=== PATIENT | female | born 1945 | race Two or more races ===

== ENCOUNTER 2021-07-15 14:00 | Outpatient (CLI) | payer MEDICARE, OTHER ==
[2021-07-23] MEDS ORDERED: RIVA10TA PO (16:08)
[2021-07-23] MEDS ORDERED: SENN-175 PO (16:08)
== END 2021-07-15 23:59 | disposition home or self-care (01) ==
LOC: LAB 14:00
PROVIDERS: ATTEND Specialist
DX: Z01.812 Encounter for preprocedural laboratory examination (principal); Z20.822 Contact with and (suspected) exposure to COVID-19
CPT/HCPCS: C9803; U0003

== ENCOUNTER 2021-07-22 05:10 | Inpatient (IN) | payer MEDICARE, OTHER ==
[~2021-07-22] VITALS: Ht 152.4 cm; Wt 66.8 kg
[2021-07-22 05:40] VITALS: BP 123/82
[2021-07-22] MEDS ORDERED: BUPIVACAINE 0.5 % PF 150 MG/30 ML VIAL ONE (06:24)
[2021-07-22] MEDS ORDERED: POLYMYXIN B SULFATE 500,000 UNITS ONE (06:24)
[2021-07-22] MEDS ORDERED: OXYC1TAB12 PO (06:26)
[2021-07-22] MEDS ORDERED: HYDROMORPHONE INJ 2 MG/ML DISP.SYRIN ONE (06:36)
[2021-07-22] MEDS ORDERED: FENTANYL PF 250MCG/5ML AMPUL ONE (06:36)
[2021-07-22] MEDS ORDERED: FAMOTIDINE/PF INJ 20 MG/2 ML VIAL IV ONE (06:37)
[2021-07-22] MEDS ORDERED: ROCURONIUM BROMIDE 50 MG/5 ML ONE (06:37)
[2021-07-22] MEDS ORDERED: MIDAZOLAM HCL 2 MG/2ML VIAL ONE (06:37)
[2021-07-22] MEDS ORDERED: TRANEXAMIC ACID 3,000 MG in SODIUM CHLORIDE IRRIG SOLUTION 70 ML IR ONE (07:00)
--- NOTE | 2021-07-22 07:18 | NUR ---
RN ADMITTING NOTE Patient came up to floor at 0530. A&Ox4. VSS. Has been NPO since midnight. Consents obtained. MRSA swab collected. IV access obtained R wrist #[id number]. Is able to walk steady with walker. Patient is continent. States she is peeing frequently at the moment because she is nervous will endorse to next nurse to monitor urine output. Full code. covid vaccinated x3. Says only at home meds are fish oil and vitamin D. Last BM 07/21. Denies allergies but record shows lipitor as allergy. Oriented patient to unit protocols, call light, bed controls. Took down by surgical team at 0635.
--- NOTE | 2021-07-22 07:45 | NUR ---
PATIENT NOT IN THE ROOM AT THIS TIME. PATIENT IS AT THE OR FOR A SURGERY WITH DR. LEYVA.
[2021-07-22 09:30] VITALS: BP 116/52
[2021-07-22] MEDS ORDERED: FENTANYL PF 100MCG/2ML AMPUL ONE (09:38)
[2021-07-22] MEDS ORDERED: ACETAMINOPHEN 325 MG TABLET PO PRN (10:30)
[2021-07-22] MEDS ORDERED: DOCUSATE SODIUM 250 MG CAPSULE PO PRN (10:30)
[2021-07-22] MEDS ORDERED: ZOLPIDEM TARTRATE 5 MG TABLET PO PRN (10:30)
[2021-07-22] MEDS ORDERED: IV D5/0.45 NACL 1,000 ML IV PRN ×2 (10:30)
[2021-07-22] MEDS ORDERED: HYDROMORPHONE 1 MG/1 ML DISP.SYRIN IV PRN (11:00)
[2021-07-22] MEDS ORDERED: HYDROMORPHONE 1 MG/1 ML DISP.SYRIN IV ONE (11:53)
[2021-07-22] MEDS ORDERED: HYDROCODONE/APAP 5/325MG TABLET PO PRN (12:00)
[2021-07-22] MEDS ORDERED: MENTHOL/CETYLPYRD (CEPACOL) 1 LOZ LOZENGE PO PRN (12:00)
[2021-07-22] MEDS ORDERED: ONDANSETRON HCL/PF 4 MG/2 ML VIAL IV PRN (12:00)
[2021-07-22] MEDS ORDERED: diphenhydrAMINE HCL 25 MG CAPSULE PO PRN (12:00)
[2021-07-22] MEDS ORDERED: oxyCODONE IR immediate release 5 MG PO PRN (12:00)
[2021-07-22] MEDS ORDERED: MAG HYDROX/AL HYDROX/SIMETH 30 ML UDC PO PRN (12:00)
[2021-07-22] MEDS ORDERED: CLONIDINE HCL 0.1 MG TABLET PO PRN (12:00)
[2021-07-22] MEDS ORDERED: oxyCODONE/APAP (5/325 MG) 1 UDTAB TABLET PO PRN (12:30)
--- NOTE | 2021-07-22 14:17 | NUR ---
SS Consult: SS consult requested for safe discharge planning. The pt. i a 76 year old Mosotho female who. is admitted to Med Surg after arthroplasty and partial meniscectomy today per EMR. WALDEMAR met with pt. bedside. The pt. is alert & oriented x 4 and makes good eye contact. The pt. has euthymic mood& affect. The pt. remained calm & cooperative throughout interview. The pt. denies SI/HI and denies hallucinations. The pt's speech & thought process are WNL. SW explored pt.'s living situation. Pt. stated she resides at home [[id number] [address]] with her , Vinay Barroso [phone]. Per pt., her son, Beau Barroso is her caregiver through [facility]. Patient states there are 2 steps to get into her home. SW explored pt.'s drug, ETOH use and mental health Hx. Pt. denies any drug or alcohol use and denies Hx. of mental health issues. Pt. states she receives food stamps and SSI. WALDEMAR discussed HH/DME needs with Keri GASTON who will follow up. SW provided pt. with senior resources for : Transportation, caregiving DME, Insurance etc. and pt. accepted it: ABUSE PREVENTION: ELDER ABUSE HOTLINE (31/10) ADULT PROTECTIVE SERVICES HOTLINE LONG-TERM CARE [facility] Region AREA ON AGING (HOTLINE) ADULT DAY HEALTH CARE CARE CENTERS: Private pay or Medi-meryl funded adult day care [place] [facility] [place] [facility] [place] , [facility] , [facility] , [facility] Adult Day Health Care , [facility] Adult Day Health Care , [facility] Adult Day[facility] Center , [facility] , [place] Larissa [facility] Adult [place] , [place] ALZHEIMERS DISEASE/DEMENTIA: Alzheimers Association Helpline [facility] Chapter www.alz.org/[facility] Department of Aging www.lacity.org Family Caregiver [place] www.caregiver.org [place] Caregiver Resources Center/Family Support www.[facility].org CANCER RESOURCES: [place] Cancer Society www.cancer.org Cancer Support Community www.CancerSupportVvsb.org: CancerCare www.cancercare.org [facility] Cancer Support [place] www.[facility].org [facility] HEALTH ASSOCIATIONS: AARP www.aarp.org ALS Association (ask for Honey) www.als.org [place] Diabetes Association www.diabetes.org [place] Heart Association www.heart.org [place] Lung Association www.lungusa.org [place] Parkinson Disease Association www.apdaparkinson.org [place] , www.redcross.org Arthritis Foundation www.arthritis.org Crohns & Colitis Foundation of [place] www.ccfa.org/chapters/jeremías National Multiple Sclerosis Society www.nationalmssociety.org Myasthenia Gravis Foundation www.myasthenia-ca.org National Stroke Association www.stroke.org CONSERVATORSHIP & GUARDIANSHIP: AARP Izabella Pinon Legal Services Center for Health Care Rights Eldercare Information and Referral Cook Relief [facility]: [facility] Bar Referral Service [facility] Neighborhood Legal Services Office of the Public Guardian [place] EYESIGHT DISORDER RESOURCES: [place] Macular Degeneration Foundation [facility] www.[facility].org GRIEF AND BEREAVEMENT RESOURCES: The [place] , [facility] THE HOPE Connection , [facility] , [place] HEARING DISORDER RESOURCES: [place] Telephone Access Program Deaf and Disabled Telecommunications Program www.ddtp.[facility].ca.gov HearRx Hearing Centers ([place]) Better Hearing Systems , [place] GLAD ([facility] Agency on Deafness) V/ TTY; Case Manager , [facility] Hearing [facility] -low income hearing aid assistance www.DEONTICSohiohealth nelsonville health centerringfoundation.org [facility] , [place] HELP AT HOME CAREGIVER SUPPORT: In Home Support Services (Must have Medi-Meryl to be eligible) *Ask for a list of agencies that provide services to assist with care in the home. Local Senior Centers also have listings of care providers. HOME SAFETY MODIFICATIONS AND EQUIPMENT: Senior centers have additional referrals. [place] Housing and Community Investment Dept. Handyworker Program (low income) or Visit http://hcidla.lacity.org/drw-ozvnla-rb for more information National Seating and Mobility and/or ; Forever Active www.foreveractivemed.com Stay Home Safe www.Stayhomesafe.com LIFE ALERT RESPONSE SYSTEM: Advanced ICU Care Services 028-346-1278 www. Apptio.Slipstream Life Alert 956-338-2427 www.Critical Diagnostics.Slipstream Life Station 060-516-1121 www.Highlighter.Slipstream Safe Return 304-215-5950 www.alz.or/safereturn Cell Phones for Seniors www.[employer] MEALS AND FOOD PROGRAMS: [place] Meals on Wheels [phone] [place] Meals on Wheels [phone] [facility] [phone] [place] to the Homebound [phone] [place] to the Homebound [phone] [facility] to the Homebound [phone] [facility] to the Homebound [phone] [facility] [phone] [facility] [phone] ONE Generation [phone] [facility] [phone] [facility] [phone] Meals on Wheels [phone] For all ages: $6.85/ meal w side. Delivered M-F from 10 am-1pm. Application and payment is done over the phone. Frozen meals available for weekends. Emergency Food Coaldignity health [facility] [phone] [facility] Bender Hand [phone] [facility] [phone] [facility]- Brown bag lunches [phone] [facility] [phone] MEAL/GROCERY DELIVERY PROGRAMS: [facility] Gourmet Meals [phone]- [facility] [phone]- [facility] Magic Kitchen [phone] Moms Meals [phone] (ask [place] for Discount Select grocery stores may provide delivery. MEDICAL INSURANCE SUPPORT SERVICES: Center for Health Care Rights [phone] Health Insurance Counseling/Advocacy Programs (HICAP)-Must have Medicare. Offers counseling for Medi-Meryl eligibility [phone] Department of Public Bender Hand [phone] www.[facility].ca.gov Medicare 111-337-4374 www.socialsecurity.org Social Security [phone] SENIOR ACTIVITY PROGRAMS: *Contact a local senior center, adult school, recreation facility or community [facility] for education, fitness, recreation, and social programs. Aquatic Therapy and Adapted Exercise programs through [facility] [phone] Encore at [facility] [phone] www.[facility]/encore H2U- Senior Friends 552-228-4478 [place] Senior Programs [phone] www.oasisnet.org Suddenly 65 www.cqlokdjw21.com SENIOR CENTERS: [facility] Center [phone] [facility] [phone] [facility] [phone] [facility] [phone] [facility] [phone] [facility] [phone] [facility] [phone] [facility] [phone] One [facility] / [facility] [phone] [facility] [phone] [facility] [phone] [facility] [phone] [facility] [phone] TRANSPORTATION: Local [facility] Centers may have applications for transportation programs and additional resources. ACCESS Services [phone] Transportation for seniors and disabled persons 7 days a week requiring 254 hr. advance reservation. Must apply and register for program saw eligible. Forerun RIDE 691-928-9632 or [phone] Transportation for seniors and persons with ADA card/metro disabled card in the [facility]. M-F only. Must register for services. ONE GENERATION [phone] Serves 65 years + in conjunction with city ride program. Must be registered with both programs. A to B Transport [phone] Provides wheelchair/gurney van service. Adult Medical Transport [phone] Accepts [facility] with prior authorization. Care Van [phone] Provides wheelchair Transport. [facility] Wide Transportation [phone] Provides gurney service [facility] Care [phone] Gurney Transport. All Town Transportation [phone] wheelchair & gurney transport D Transportation [phone] wheelchair & gurney transport [place] Non-Emergency Transport [phone] wheelchair & gurney transport [facility] Living [place] [phone] Short Term Transportation primarily for adults with disabilities on social security income. Nominal fee may apply and a reservation is required. [facility] [phone] or [phone] [facility] [phone] [place] [address] Referral Services -[phone] For additional programs & services VETERANS RESOURCES: Submissions for Aid and Attendance should be done directly to Federal VA office locatd at : [address] [phone] X110 National Caregiver Support Line [phone] [facility] Veterans Services Field Office [phone] [place] Department of [place] Affairs [phone] Pension Information [phone]
[2021-07-22] MEDS: ANCEF 1 GM/50 ML D5W IV SCH ×4 (15:03→23:09)
[2021-07-22 16:00] VITALS: BP 109/67
[2021-07-22] MEDS: RIVAROXABAN 10 MG TABLET PO SCH (17:01)
[2021-07-22] MEDS: DOCUSATE SODIUM 100 MG CAPSULE PO SCH (17:02)
--- NOTE | 2021-07-22 19:35 | NUR ---
RN NOTES RECEIVED PATIENT AWAKE ON BED, A/OX4, S/P LEFT KNEE ARTHROPLASTY,DRESSING DRY AND INTACT, PT. WAS NOT USING HER CPM MACHINE , PER PT, SHE WILL USE IT TOMORROW, SHE WANTS TO SLEEP. CALL LIGHT WITHIN REACH, [id number], WILL CONTINUE TO MONITOR
[2021-07-22 20:00] VITALS: BP 125/59
--- NOTE | 2021-07-22 21:00 | NUR ---
RN NOTES PT. IS FEELING NAUSEOUS-ZOFRAN 4 MG IV GIVEN ORDERED
[2021-07-22] MEDS: FAMOTIDINE (20 MG) 20 MG TABLET PO SCH (21:11)
[2021-07-22] MEDS ORDERED: BISACODYL SUPP (10 MG) 10 MG/SUPP.RECT SUPP.RECT RC PRN (22:00)
[2021-07-22] MEDS ORDERED: SENNOSIDES 8.6 MG TABLET PO PRN (22:00)
[2021-07-22] MEDS: ACETAMINOPHEN 325 MG TABLET PO PRN (23:19)
[2021-07-23 06:09] LABS: CALCIUM, SERUM 8.8 mg/dL (8.5-10.1); CARBON DIOXIDE 24 mmol/L (21-32); CHLORIDE 106 mmol/L (98-107); CREATININE 0.6 mg/dL (0.6-1.3); GLUCOSE 109 mg/dL (74-106); MAGNESIUM 2.1 mg/dL (1.8-2.4); PHOSPHORUS 3.1 mg/dL (2.5-4.9); POTASSIUM 3.6 mmol/L (3.5-5.1); SODIUM SERUM 137 mmol/L (136-145); UREA NITROGEN, BLOOD 18 mg/dL (7-18)
[2021-07-23] MEDS: ACETAMINOPHEN 325 MG TABLET PO PRN ×2 (06:23→12:31)
--- NOTE | 2021-07-23 06:28 | NUR ---
RN NOTES PATIENT ASKED FOR TYLENOL , PT . REFUSED OTHER PAIN MEDICATION, TYLENOL 650MG PO GVIEN ORDERED, MORNING CARE RENDERED, CALL LIGHT WITHIN REACH, PT. NEEDS ATTENDED
[2021-07-23 06:35] LABS: BASOPHILS % (AUTO) 0.2 % (0.0-2.0); EOSINOPHILS % (AUTO) 0.1 % (0.0-6.0); HEMATOCRIT 33 % (33-45); HEMOGLOBIN 11.1 g/dL (11.5-14.8); LYMPHOCYTES # (AUTO) 1.4 K/uL (0.8-4.8); LYMPHOCYTES % (AUTO) 7.9 % (20.0-44.0); MEAN CORPUSCULAR HGB CONC 34 g/dl (31.0-36.0); MEAN CORPUSCULAR VOLUME 88 fL (82-100); MONOCYTES # (AUTO) 1.4 K/uL (0.1-1.30); MONOCYTES % (AUTO) 8.3 % (2.0-12.0); NEUTROPHILS # (AUTO) 14.5 K/uL (1.8-8.9); NEUTROPHILS % (AUTO) 83.5 % (43.0-81.0); PLATELET COUNT (AUTO) 219 K/uL (150-450); RED BLOOD CELL COUNT(AUTO) 3.77 MIL/uL (4.0-5.2); WHITE BLOOD COUNT (AUTO) 17.3 K/uL (4.3-11.0)
--- NOTE | 2021-07-23 07:00 | NUR ---
MS RN OPENING NOTE PATIENT SLEEPING IN BED, AROUSABLE BY NAME TO A/O X 4. LEFT KNEE ARTHROPLASTY DRESSING CLEAN, DRY, INTACT. R WRIST 20 G CLEAN, INTACT, AND FLUSHING WELL. PATIENT TOLERATING WELL ON ROOM AIR WITH NO S/S OF RESPIRATORY DISTRESS, NO PAIN OR DISCOMFORT NOTED AT THIS TIME. SAFETY MEASURES IN PLACE: BED IN LOWEST LOCKED POSITION, SIDE RAILS UP X 2, CALL LIGHT WITHIN REACH. WILL CONTINUE TO MONITOR.
[2021-07-23 08:54] VITALS: BP 115/57
[2021-07-23] MEDS: FAMOTIDINE (20 MG) 20 MG TABLET PO SCH (09:06)
[2021-07-23] MEDS: DOCUSATE SODIUM 100 MG CAPSULE PO SCH ×2 (09:06→17:12)
--- NOTE | 2021-07-23 12:31 | NUR ---
MS RN NOTES PATIENT COMPLAINT OF 3/10 LEFT LEG PAIN AND REQUESTING PAIN MEDICATION. PRN TYLENOL 650 MG PO ADMINISTERED ORDERED. WILL CONTINUE TO MONITOR FOR S/S OF PAIN.
[2021-07-23 15:45] VITALS: BP 106/65
--- NOTE | 2021-07-23 16:00 | NUR ---
MS HEAD SUGAR REPROCESS OPERATOR NOTE PATIENT A/O X 4, CAST PRESENT ON LEFT LEG CLEAN, DRY, INTACT. ID BAND AND IV LINE REMOVED. PATIENT AND FAMILY MADE AWARE OF MD DISCHARGE ORDERS AND BELONGINGS LIST, PATIENT SIGNED DISCHARGE ORDER INSTRUCTIONS AND BELONGINGS LIST SHEETS. PATIENT DISCHARGED WITH ALL PRESCRIPTIONS AND WITH WALKER WHICH SHE HAD ARRIVED WITH TO THE UNIT. PATIENT VITAL SIGNS STABLE, NO COMPLAINTS OF PAIN OR DISCOMFORT AT THIS TIME. PATIENT TRANSFERRED TO WHEELCHAIR WITHOUT INCIDENT AND TRANSPORTED OFF OF FLOOR BY KEVON DAVIS ACCOMPANIED BY FAMILY.
[2021-07-23] MEDS ORDERED: SENN-175 PO (16:08)
[2021-07-23] MEDS ORDERED: RIVA10TA PO (16:08)
[2021-07-23] MEDS: RIVAROXABAN 10 MG TABLET PO SCH (17:13)
== END 2021-07-23 17:30 | disposition home health service (06) | DRG 470 ==
LOC: DS 05:10 → MED 05:12
PROVIDERS: ADMIT Student in an Organized Health Care Education/Training Program; ATTEND Student in an Organized Health Care Education/Training Program
PROC: 0SRD0J9 Replacement of Left Knee Joint with Synthetic Substitute, Cemented, Open Approach (ICD-10-PCS; principal; 2021-07-22)
PROC: 0SBD4ZZ Excision of Left Knee Joint, Percutaneous Endoscopic Approach (ICD-10-PCS; 2021-07-22)
DX: M17.12 Unilateral primary osteoarthritis, left knee (principal); I10 Essential (primary) hypertension; S83.282A Other tear of lateral meniscus, current injury, left knee, initial encounter; E78.00 Pure hypercholesterolemia, unspecified; K29.70 Gastritis, unspecified, without bleeding; Z90.710 Acquired absence of both cervix and uterus; Z90.49 Acquired absence of other specified parts of digestive tract; D64.9 Anemia, unspecified; D72.829 Elevated white blood cell count, unspecified
CPT/HCPCS: 36415; 80048-TC; 83735-TC; 84100-TC; 85025-TC; 87081-TC; 88305-TC; 88311-TC; 97110-TC; 97112-TC; 97760-TC; A4217; C1713; C1776; G0378; J0690; J1170; J2250; J2405; J2704; J2765; J3010; J3490; J7030; J7060; L1830

== ENCOUNTER 2024-10-15 07:06 | Day surgery (SDC) | payer MEDICARE, OTHER ==
[~2024-10-15 07:06] MED LIST: RIVA10TA PO; SENN-175 PO
[2024-10-15] MEDS ORDERED: ANESTHESIA TRAY IN PYXIS 1 EA TRAY MC ONE (07:34)
[2024-10-15] MEDS ORDERED: BUPIVACAINE 0.5 % PF 150 MG/30 ML VIAL ONE (07:35)
[2024-10-15] MEDS ORDERED: EPINEPHRINE (1:1000) 1 MG/ML AMPUL ONE (07:58)
[2024-10-15] MEDS ORDERED: FENTANYL PF 100MCG/2ML AMPUL ONE (08:27)
[2024-10-15] MEDS ORDERED: FAMOTIDINE/PF INJ 20 MG/2 ML VIAL IV ONE (08:27)
== END 2024-10-15 23:59 | disposition home or self-care (01) ==
LOC: DS 07:06 → UNDOADMIN 07:09 → MED 07:09 → UNDODISIN 13:30 → DS 23:59
PROVIDERS: ATTEND Specialist
DX: S83.281A Other tear of lateral meniscus, current injury, right knee, initial encounter (principal); S83.241A Other tear of medial meniscus, current injury, right knee, initial encounter; M23.41 Loose body in knee, right knee; M22.41 Chondromalacia patellae, right knee; I10 Essential (primary) hypertension; E78.5 Hyperlipidemia, unspecified; Z90.49 Acquired absence of other specified parts of digestive tract; Z98.890 Other specified postprocedural states; X58.XXXA Exposure to other specified factors, initial encounter; Y93.89 Activity, other specified; Y92.89 Other specified places as the place of occurrence of the external cause; Y99.8 Other external cause status
CPT/HCPCS: 27331; 29880; A4217; J0171; J0690; J1100; J1308; J1885; J2405; J2704; J3010; J3490; J7030; G0378